=== PATIENT | male | born 2000 | race Caucasian/White ===

== ENCOUNTER 2019-05-28 10:15 | Emergency (ER) | payer BC ==
--- NOTE | 2019-05-28 10:50 | RAD ---
Radiograph right shoulder 3 views: HISTORY: 18-year-old male status post acute blunt right shoulder traumatic injury. FINDINGS: No fracture or dislocation. IMPRESSION: Negative.
[2019-05-28] MEDS ORDERED: Ketorolac Tromethamine 30 MG/ML VIAL ONE (11:58)
== END 2019-05-28 12:05 | disposition home or self-care (01) ==
LOC: ERS 10:15
DX: M25.511 Pain in right shoulder (principal); X58.XXXA Exposure to other specified factors, initial encounter; Y93.61 Activity, american tackle football; Y99.8 Other external cause status
CPT/HCPCS: 96372; J1885